=== PATIENT | male | born 1960 | race Caucasian/White ===

== ENCOUNTER 2016-06-04 22:33 | Emergency (ER) | payer BC ==
[2016-06-04 22:57] LABS: Hematocrit 42 % (42-52); Hemoglobin 13.6 g/dl (14.0-18.0); Mean Corpuscular HGB Conc 32 g/dl (31-36); Mean Corpuscular Hemoglobin 30 pg (27-31); Mean Corpuscular Volume 92 fL (80-94); Mean Platelet Volume 9 um3 (7.4-10.4); Red Blood Count 4.59 10^6/ul (4.0-5.4); Red Cell Distribution Width 13 % (10.5-15); White Blood Count 12.8 10^3/ul (3.5-10.8)
[2016-06-04 22:59] LABS: Add Diff/Slide Review? Slide Review Added; Comments Flag Yes
[2016-06-04 23:12] LABS: Albumin 4.1 g/dL (3.2-5.2); BUN/Creatinine Ratio 21.3 (8-20); Calcium 8.7 mg/dL (8.6-10.3); EGFR African American 113.7 (>60); EGFR Non-African American 88.4 (>60); Potassium 3.7 mmol/L (3.5-5.0); Total Bilirubin 0.4 mg/dL (0.2-1.0); Total Protein 7.1 g/dL (6.4-8.9)
[2016-06-05] MEDS ORDERED: NS 0.9% 1000 ML* 2,000 ML IV ONE (00:58)
[2016-06-05 02:50] VITALS: BP 167/88
--- NOTE | 2016-06-05 09:09 | RAD ---
Indication: Syncope. Single frontal view of the chest performed at 0055 hours was reviewed. Comparison is made with previous exam dated March 15, 2015. No mediastinal shift is noted. Heart is of normal size and configuration. Lung bernal appear clear. IMPRESSION: NO ACTIVE CARDIOPULMONARY DISEASE IS NOTED.
--- NOTE | 2016-06-05 11:49 | CONS ---
CONSULTATION REPORT: DATE OF CONSULT: DATE OF DICTATION: 06/04/16 CHIEF COMPLAINT: Almost passed out. HISTORY OF PRESENT ILLNESS: The patient is a 55-year-old gentleman. He says he went to lunch today for [employer] and had 10 beers until a bit later in the day. He said he only ate breakfast at 10 a.m., but had nothing further all day long. He then got home and decided to go to his neighbor's house for another beer. He got to their house, had another beer and then said he got something like tunnel vision. He felt like he was going to pass out and according to his neighbors, the eyes rolled to the back of his head. he patient says he never did actually pass out, but his neighbors became concerned and called 911. He did not bite his tongue. He had no urinary or bowel incontinence. He has recently had an upper respiratory infection including the fact that he had the 11 beers as well as very little to eat yesterday. PAST MEDICAL HISTORY: He has no significant past medical history. MEDICATIONS: He is on no medications. ALLERGIES: He has no known drug allergies. FAMILY HISTORY: Mother is alive at 87, alive and well. Father is alive at 82, had a 3-vessel CABG. SOCIAL HISTORY: No tobacco. Has a couple of drinks a week. No recreational drug use. He is a union licensed electrician. He has a girlfriend. He has 1 son. REVIEW OF SYSTEMS: A 14-point review of systems was completed with the patient. All pertinent positives and negatives are in the history of present illness, otherwise it is negative. PHYSICAL EXAMINATION: General: He is a pleasant gentleman, sitting up in bed, in no acute distress. Vital Signs: Blood pressure is 135/80, pulse ox 98%, respiratory rate 17 breaths per minute, heart rate 77 beats per minute, and temperature 98.2 degrees. HEENT: Normocephalic, atraumatic. Pupils equal, round and reactive to light. Moist mucous membranes. Neck: Supple. No JVD, bruits, palpable thyroid, or lymphadenopathy. Chest: Clear to auscultation and percussion bilaterally. Cardiovascular Exam: S1, S2 appreciated. Regular rate and rhythm. Abdomen Exam: Positive bowel sounds in all 4 quadrants. Soft , nontender, and nondistended. No hepatosplenomegaly. Extremities: No cyanosis, clubbing, or edema; +2 peripheral pulses bilaterally. Neurologic: Alert and oriented x3. Moves all extremities. Skin: No rashes or abnormalities. DIAGNOSTIC STUDIES/LAB DATA: White count 12.8, hemoglobin 17.6, hematocrit 42, and platelets of 228. Sodium was 135, potassium 3.7, chloride 104, CO2 22, BUN 19, creatinine 0.89, and glucose 121. INR 0.98. Serum alcohol 39. Chest x-ray shows no apparent infiltrates. His EKG shows normal sinus rhythm at 85 beats per minute, normal axis, PVC, no acute ST-T wave changes, no acute right bundle-branch block. ASSESSMENT AND PLAN: Recommendations: Near syncopal episode, but the patient did not pass out. In fact, I doubt he actually even had a seizure. He might have had a slightly episode of convulsive syncope. The patient feels fine now. I think it likely explained by his lack of eating, dehydration, and drinking coupled with the fact that he had a recent upper respiratory infection. The patient is anxious to go home and I think it is fairly safe to do so. The patient is to return to the ED if symptoms recur or he develops any worrisome symptoms. Thank you very much for this consult. TIME SPENT: Over 75 minutes was spent on this consult; more than 40 minutes of which was spent in direct [id number] contact with the patient, evaluation, physical exam, counseling, and coordination of care. CC: Capo Gleason MD* [id number]/CPS #: [id number]
--- NOTE | 2016-06-06 09:15 | ED ---
Juwan Leary Aidan, scribed for Fernando Miller MD on 06/05/16 at 0103 . Syncope/Near Syncope - HPI Summary HPI Summary: 55 y/o male presents to the ED via EMS with a complaint of an acute, moderate episode of near-syncope followed by profuse diaphoresis that occurred roughly 3 hours ago. During the onset of the onset of the episode, he had tunnel vision. According to the patients , during the episode, his eyes rolled to the back of his head and he turned pale. At 1200 this morning, he had 10 beers. While in the ambulance, his mouth felt dry. Associated symptoms include a mild head cold and congestion. Pt denies any CP, SOB, difficulty breathing, or dark black stools. He has never been to rehab or experienced withdrawls. Pts last meal was at 1000 this morning. - History Of Current Complaint Chief Complaint: EDSeizure Time Seen by Provider: 06/04/16 22:37 Hx Obtained From: Patient, Family/Supervisor Shipping Room - Onset/Duration: Sudden Onset, Lasting Minutes, Resolved Timing: Intermittent Episode Lasting Context: Witnessed, Loss Of Consciousness - LOC according to the patient's , however, the patient denied LOC Activity At Onset: At Rest Associated Head Trauma: No Aggravating Factor(s): Other - alcohol intoxication likely Alleviating Factor(s): Other - unknown Associated Signs And Symptoms: Diaphoresis, Other - a head cold and congestion, Pt had tunnel vision during the onset of the episode and was profusely diaphoretic just after Frequency: Episodes x___ - 1 - Risk Factors Dysrhythmia Risk Factors: Age Greater Than 45 - Allergies/Home Medications Allergies/Adverse Reactions: Allergies Allergy/AdvReac Type Severity Reaction Status Date / Time No Known Allergies Allergy Verified 03/15/15 07:17 PMH/Surg Hx/FS Hx/Imm Hx Endocrine/Hematology History: Denies: Hx Diabetes Musculoskeletal History: Reports: Other Musculoskeletal History - ROLLED 4 THAYER, PAIN UNDER RIGHT ARM AND IN LOW BACK Infectious Disease History: No Infectious Disease History: Denies: Traveled Outside the [place] in Last 30 Days - Family History Known Family History: Positive: Cardiac Disease, Diabetes - Social History Occupation: Employed Full-time Lives: With Family Alcohol Use: None Substance Use Type: Reports: None Smoking Status (MU): Never Smoked Tobacco Review of Systems Positive: Skin Diaphoresis. Negative: Fever, Chills, Fatigue Negative: Photophobia, Blurred Vision, Diplopia, Drainage, Erythema ENT: Other - head cold and congestion Negative: Epistaxis, Dental Pain, Sore Throat, Ear Ache, Nasal Discharge Negative: Palpitations, Chest Pain Negative: Shortness Of Breath, Cough Negative: Abdominal Pain, Vomiting, Diarrhea, Nausea Negative: burning, dysuria, discharge, frequency, flank pain, hematuria, incontinence, pain, urgency Negative: Arthralgia, Myalgia, Decreased ROM, Edema Negative: Rash, Bruising Neurological: Other - intoxication earlier today Positive: Syncope. Negative: Headache, Weakness, Paresthesia, Numbness, Slurred Speech Negative: Anxious, Depressed All Other Systems Reviewed And Are Negative: Yes Physical Exam - Summary Physical Exam Summary: Constitutional: Well-developed, Well-nourished, Alert. (-) Distressed Skin: Warm, Dry HENT: Eyes: Conjunctiva normal Neck: Musculoskeletal ROM normal neck. (-) JVD, (-) Stridor, (-) Tracheal deviation Cardio: Rhythm regular, rate normal, Heart sounds normal; Intact distal pulses ; The pedal pulses are 2+ and symmetric. Radial pulses are 2+ and symmetric. (- ) Murmur Pulmonary/Chest wall: Effort normal. (-) Respiratory distress, (-) Wheezes, (-) Rales Abd: Soft. (-) Tenderness, (-) Distension, (-) Guarding, (-) Rebound Musculoskeletal: (-) Edema Lymph: (-) Cervical adenopathy Neuro: Alert, Oriented x3, Strength normal, Cranial nerves II-XII are grossly intact. (-) Dysmetria, (-) Nystagmus, (-) Ataxia by finger to nose testing, (-) Sensory deficit. Psych: Mood and affect Normal Triage Information Reviewed: Yes Vital Signs On Initial Exam: Initial Vitals Temp Pulse Resp BP Pulse Ox 98.2 F 82 16 129/70 93 06/04/16 22:36 06/04/16 22:36 06/04/16 22:36 06/04/16 22:36 06/04/16 22:36 Vital Signs Reviewed: Yes - [place] Coma Scale Coma Scale Total: 15 Diagnostics - Vital Signs Vital Signs Temp Pulse Resp BP Pulse Ox 06/04/16 22:54 96 06/04/16 22:52 86 28 94 06/04/16 22:50 120/67 06/04/16 22:36 98.2 F 82 16 129/70 93 - Laboratory Lab Results: Lab Results 06/04/16 06/04/16 06/04/16 Range/Units 22:45 22:45 22:45 WBC 12.8 H (3.5-10.8) 10^3/ul RBC 4.59 (4.0-5.4) 10^6/ul Hgb 13.6 L (14.0-18.0) g/dl Hct 42 (42-52) % MCV 92 (80-94) fL MCH 30 (27-31) pg MCHC 32 (31-36) g/dl RDW 13 (10.5-15) % Plt Count 228 (150-450) 10^3/ul MPV 9 (7.4-10.4) um3 Neut % (Auto) 79.0 (38-83) % Lymph % (Auto) 11.7 L (25-47) % [place] % (Auto) 6.5 (1-9) % Eos % (Auto) 1.0 (0-6) % Baso % (Auto) 1.8 (0-2) % Absolute Neuts (auto) 10.1 H (1.5-7.7) 10^3/ul Absolute Lymphs (auto) 1.5 (1.0-4.8) 10^3/ul Absolute Monos (auto) 0.8 (0-0.8) 10^3/ul Absolute Eos (auto) 0.1 (0-0.6) 10^3/ul Absolute Basos (auto) 0.2 (0-0.2) 10^3/ul Absolute Nucleated RBC 0 10^3/ul Nucleated RBC % 0 INR (Anticoag Therapy) 0.98 (0.89-1.11) Sodium 135 (133-145) mmol/L Potassium 3.7 (3.5-5.0) mmol/L Chloride 104 (101-111) mmol/L Carbon Dioxide 22 (22-32) mmol/L Anion Gap 9 (2-11) mmol/L BUN 19 (6-24) mg/dL Creatinine 0.89 (0.67-1.17) mg/dL Est GFR ( Amer) 113.7 (>60) Est GFR (Non-Af Amer) 88.4 (>60) BUN/Creatinine Ratio 21.3 H (8-20) Glucose 121 H (70-100) mg/dL Lactic Acid (0.5-2.0) mmol/L Calcium 8.7 (8.6-10.3) mg/dL Magnesium 2.0 (1.9-2.7) mg/dL Total Bilirubin 0.40 (0.2-1.0) mg/dL AST 25 (13-39) U/L ALT 30 (7-52) U/L Alkaline Phosphatase 50 (34-104) U/L Total Protein 7.1 (6.4-8.9) g/dL Albumin 4.1 (3.2-5.2) g/dL Globulin 3.0 (2-4) g/dL Albumin/Globulin Ratio 1.4 (1-3) Serum Alcohol 39 H (<10) mg/dL 06/04/16 Range/Units 22:45 WBC (3.5-10.8) 10^3/ul RBC (4.0-5.4) 10^6/ul Hgb (14.0-18.0) g/dl Hct (42-52) % MCV (80-94) fL MCH (27-31) pg MCHC (31-36) g/dl RDW (10.5-15) % Plt Count (150-450) 10^3/ul MPV (7.4-10.4) um3 Neut % (Auto) (38-83) % Lymph % (Auto) (25-47) % [place] % (Auto) (1-9) % Eos % (Auto) (0-6) % Baso % (Auto) (0-2) % Absolute Neuts (auto) (1.5-7.7) 10^3/ul Absolute Lymphs (auto) (1.0-4.8) 10^3/ul Absolute Monos (auto) (0-0.8) 10^3/ul Absolute Eos (auto) (0-0.6) 10^3/ul Absolute Basos (auto) (0-0.2) 10^3/ul Absolute Nucleated RBC 10^3/ul Nucleated RBC % INR (Anticoag Therapy) (0.89-1.11) Sodium (133-145) mmol/L Potassium (3.5-5.0) mmol/L Chloride (101-111) mmol/L Carbon Dioxide (22-32) mmol/L Anion Gap (2-11) mmol/L BUN (6-24) mg/dL Creatinine (0.67-1.17) mg/dL Est GFR ( Amer) (>60) Est GFR (Non-Af Amer) (>60) BUN/Creatinine Ratio (8-20) Glucose (70-100) mg/dL Lactic Acid 1.5 (0.5-2.0) mmol/L Calcium (8.6-10.3) mg/dL Magnesium (1.9-2.7) mg/dL Total Bilirubin (0.2-1.0) mg/dL AST (13-39) U/L ALT (7-52) U/L Alkaline Phosphatase (34-104) U/L Total Protein (6.4-8.9) g/dL Albumin (3.2-5.2) g/dL Globulin (2-4) g/dL Albumin/Globulin Ratio (1-3) Serum Alcohol (<10) mg/dL Result Diagrams: 06/04/16 22:45 06/04/16 22:45 Lab Statement: Any lab studies that have been ordered have been reviewed, and results considered in the medical decision making process. Course/Dx Course Of Treatment: Dr. Hastings evaluated the patient and agreed with a diagnosis of dehydration. The patient is ambulatory and walks normally. He will be placed on fluids and discharged. He has been notified to return to the ED if he develops any anginal symptoms (CP, SOB, poring sweat, pain in the jaw or down the arms). - Diagnoses Provider Diagnoses: Dehydration, Syncope, Syncopal seizure Discharge - Discharge Plan Condition: Stable Disposition: HOME Discharge Disposition Comment: Please follow up with your primary care physician on 06/07/2016. Patient Education Materials: Dehydration (ED), Syncope (ED) Additional Instructions: Please return to the ED if you develop any anginal symptoms (CP, SOB, poring sweat, pain in the jaw or down the arms). The documentation as recorded by the Juawn bruce Aidan accurately reflects the service I personally performed and the decisions made by , Fernando Miller MD.
== END 2016-06-05 03:02 | disposition home or self-care (01) ==
LOC: ED 22:33
DX: E86.0 Dehydration (principal); R55 Syncope and collapse; R56.9 Unspecified convulsions
CPT/HCPCS: 36415; 71010; 80053; 80320; 83605; 83735; 84484; 85025; 85610; 93005; 96360; 99283; G0480

== ENCOUNTER 2019-01-11 09:21 | Emergency (ER) | payer BC, OTHER ==
[2019-01-11] MEDS ORDERED: Tetan/Diph/Pertus SYR(Tdap)* 0.5 ML SYR(BOOSTRIX) use SYR contains LATEX IM ONE (09:23)
[2019-01-11 09:35] VITALS: BP 175/97
[2019-01-11] MEDS ORDERED: Lidocaine 1% MPF ** 5 ML VIAL INJ ONE (09:40)
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
== END 2019-01-11 10:10 | disposition home or self-care (01) ==
LOC: UCEAST 09:21
DX: S61.412A Laceration without foreign body of left hand, initial encounter (principal); W31.89XA Contact with other specified machinery, initial encounter; Y92.9 Unspecified place or not applicable
CPT/HCPCS: 12001; 90471; 90715; 99211; G0463

== ENCOUNTER 2019-01-19 07:34 | Emergency (ER) | payer OTHER ==
[2019-01-19 07:50] VITALS: BP 162/82
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
== END 2019-01-19 07:51 | disposition home or self-care (01) ==
LOC: UCEAST 07:34
DX: S61.012D Laceration without foreign body of left thumb without damage to nail, subsequent encounter (principal); X58.XXXD Exposure to other specified factors, subsequent encounter